=== PATIENT | female | born 1985 | race Two or more races ===

== ENCOUNTER 2017-01-04 12:35 | Inpatient (IN) | payer OTHER ==
[2017-01-04] MEDS ORDERED: ELECTROLYTE-148 SOLN 500 ML IV ONE ×2 (13:00→14:00)
[2017-01-04 13:44] LABS: MCH 33.1 pg (25.7-33.7); MCHC 34.2 g/dl (32.0-36.0); MEAN CELL VOLUME 96.7 fl (80-96); MEAN PLT VOLUME 9.8 fl (7.5-11.1); RDW 13.5 % (11.6-15.6); URINE APPEARANCE SLCLOUDY; URINE BILIRUBIN NEGATIVE (NEGATIVE); URINE COLOR AMBER; URINE GLUCOSE (UA) 1+ (NEGATIVE); URINE KETONE NEGATIVE (NEGATIVE); URINE LEUK ESTERASE NEGATIVE (NEGATIVE); URINE NITRITE NEGATIVE (NEGATIVE); URINE UROBILINOGEN NEGATIVE E.U./dl (0.2-1.0)
[2017-01-04 13:47] LABS: URINE BLOOD 1+ (NEGATIVE); URINE PROTEIN 3+ (NEGATIVE)
[2017-01-04 13:56] LABS: URINE BACTERIA RARE /hpf (NONE SEEN); URINE HYALINE CAST 11 /lpf; URINE MUCUS FEW; URINE RBC 13 /hpf (0-3); URINE WBC 10 /hpf (3-5)
[2017-01-04 14:04] LABS: ALBUMIN 1.7 g/dl (3.4-5.0); ANION GAP 10 (8-16); BILIRUBIN,TOTAL 0.9 mg/dL (0.2-1.0); CALCIUM 7.3 mg/dL (8.5-10.1); CO2 24 mmol/L (21-32); GLUCOSE,RANDOM 97 mg/dL (74-106); TOT PROT 4.7 g/dl (6.4-8.2)
[2017-01-04 14:05] LABS: ALK PHOS 163 U/L (45-117)
[2017-01-04 14:07] LABS: SGOT/AST 521 U/L (15-37); SGPT/ALT 437 U/L (12-78)
[2017-01-04 14:12] LABS: AMYLASE 43 U/L (25-115)
--- NOTE | 2017-01-04 14:27 | HP ---
Admitting History and Physical - Admission Chief Complaint: abdominal pains History of Present Illness: 31 y/o with a prior cs and abdominoplasty comes at 36.6 weeks with complaints of RUQ pain. States it started today. Had labs done today which show elevated lfts and 3 plus protein. BP diastolic at 100. No headaches or blurry vision. EFW is in the 5 pounds. A pos, rubella immune, hiv neg. 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: No: Alzheimer's, CVA, Dementia, Migraine, Multiple Sclerosis, Peripheral Neuropathy, Parkinson's, Seizure, Syncope, TIA, Vertigo, Other Cardiovascular: No: AFIB, Aneurysm, Aortic Insufficiency, Aortic Stenosis, CAD, CHF, Deep Vein Thrombosis, HTN, Hyperlipdemia, CT, Mitral Insufficiency, Mitral Stenosis, Murmur, Pulmonary Hypertension, Other Pulmonary: No: Asthma, Bronchitis, Cancer, COPD, O2 Dependent, Pneumonia, Previously Intubated, Pulmonary Embolus, Pulmonary Fibrosis, Sleep Apnea, Other Gastrointestinal: No: Ascites, Cancer, Constipation, Crohn's Disease, Diverticulitis, Diverticulosis, Esophageal Varices, Gastritis, GERD, GI Bleed, Hemorrhoids, Hiatal Hernia, Inflamatory Bowel Disease, Irritable Bowel Disease, Pancreatitis, Peptic Ulcer Disease, Ulcerative Colitis, Other Hepatobiliary: No: Cirrhosis, Cholelithiasis, Cholecystitis, Choledocholithiasis , Hepatitis A, Hepatitis B, Hepatitis C, Other Renal/: No: Renal Failure, Renal Inusuff, BPH, Cancer, Hematuria, Hemodialysis , Neurogenic Bladder, Renal Calculi, UTI, Other Reproductive: No: Ectopic , Endometriosis, Fibroids, PID, Polycystic Ovary Syndrome, Postmenopausal, Other Heme/Onc: No: Anemia, B12 Deficiency, Bleeding Disorder, Cancer, Current Chemotherapy, Current Radiation Therapy, Hemochromatosis, Hypercoaguable State, Myeloproliferative Synd, Sickle Cell Disease, Sickle Cell Trait, Thrombocytopenia, Other Infectious Disease: No: AIDS, C-Diff, Herpes Zoster, HIV, MRSA, STD's, Tuberculosis, VREF, Other Psych: No: Addictions, Anxiety, Bipolar, Depression, Panic, Psychosis, Schizophrenia, Other Musculoskeletal: No: Bursitis, Chronic low back pain, Hemiparesis, Hemiplegia, Osteoarthritis, Paraplegia, Other Rheumatology: No: Fibromyalgia, Gout, Lupus, Rheumatoid Arthritis, Sarcoidosis, Vasculitis, Other ENT: No: Allergic Rhinitis, Sinusitis, Other Endocrine: No: [place]ell[place]'s Disease, Orange's Disease, Diabetes Insipidus, Diabetes Mellitus, Hyperparathyroidism, Hyperthyroidism, Hypothyroidism, Osteopenia, SIADH, Other Dermatology: No: Basal Cell, Cellulitis, Eczema, Melanoma, Psoriasis, Squamous Cell, Other - Past Surgical History Past Surgical History: No: None, AAA Repair, AICD, Amputation, Appendectomy, Arthrosocopy, AV Fistula/Graft, Bariatric Surgery, Breast Biopsy, Bypass, CABG, Carotid Endarterectomy, Cataract Removal, Cholecystectomy, Colectomy, Colonoscopy, Colostomy, Craniotomy, , Cystectomy, Hernia Repair, Hysterectomy, Ileal Conduit, Ileosotomy, Joint Replacement, Kidney Transplant, Laminectomy, Liver Transplant, Mastectomy, Nephrectomy, Oopherectomy, Orchiectomy, Permanent Pacemaker, Prostatectomy, Splenectomy, Stent, Thoracotomy , TURP, Tonsillectomy, Tubal Ligation, Upper Endoscopy, Valve Replacement, Vasectomy, Vein Stripping/Ligation - Advance Directives Advance Directives: No: Living Will, Health Care Proxy, DNR, Organ Donor, Tissue Donor - Smoking History Smoking history: Never smoked - Alcohol/Substance Use Hx Alcohol Use: No Home Medications - Allergies Allergies/Adverse Reactions: Allergies Allergy/AdvReac Type Severity Reaction Status Date / Time No Known Allergies Allergy Verified 07/27/16 22:19 - Home Medications Home Medications: Ambulatory Orders Plus Iron Tablet 1 tab PO DAILY 11/28/16 Review of Systems - Review of Systems Constitutional: reports: No Symptoms Eyes: reports: No Symptoms HENT: reports: No Symptoms Neck: reports: No Symptoms Cardiovascular: reports: No Symptoms Respiratory: reports: No Symptoms Gastrointestinal: reports: No Symptoms Genitourinary: reports: No Symptoms Breasts: reports: No Symptoms Reported Musculoskeletal: reports: No Symptoms Integumentary: reports: No Symptoms Neurological: reports: No Symptoms Endocrine: reports: No Symptoms Hematology/Lymphatic: reports: No Symptoms Psychiatric: reports: No Symptoms Physical Examination Constitutional: Yes: Well Nourished Eyes: Yes: WNL HENT: Yes: WNL Neck: Yes: WNL Cardiovascular: Yes: WNL Respiratory: Yes: WNL Gastrointestinal: Yes: WNL ...Rectal Exam: Yes: WNL Renal/: Yes: WNL Breast(s): Yes: WNL Musculoskeletal: Yes: WNL Extremities: Yes: WNL Neurological: Yes: WNL ...Motor Strength: WNL Psychiatric: Yes: WNL Labs: CBC, BMP 01/04/17 13:30 01/04/17 13:30 Assessment/Plan as above admit labs will start magnesium sulfate consents
[2017-01-04 14:36] VITALS: BMI 34.7
[2017-01-04] MEDS ORDERED: ONDANSETRON 4 MG/2 ML VIAL IVPB PRN (14:52)
[2017-01-04] MEDS ORDERED: IBUPROFEN 600 MG TABLET (FP) PO PRN (14:52)
[2017-01-04] MEDS ORDERED: morphine SULFATE/Preservative Free 0.5 MG/ML (1cc Syringe) EP ONE (14:52)
[2017-01-04] MEDS ORDERED: ACETAMINOPHEN 325 MG TABLET (FP) PO PRN (14:52)
[2017-01-04 14:58] LABS: BASOPHIL 0.5 % (0-2.0); EOSINOPHIL 1.2 % (0-4.5); MCH 32.8 pg (25.7-33.7); MCHC 33.9 g/dl (32.0-36.0); MEAN CELL VOLUME 96.9 fl (80-96); MEAN PLT VOLUME 9.7 fl (7.5-11.1); NEUTROPHILS 72.6 % (42.8-82.8); RDW 13.3 % (11.6-15.6); WHITE BLOOD COUNT 14.2 K/mm3 (4.0-10.0)
[2017-01-04 15:11] LABS: INR 0.86 (0.82-1.09); PROTHROMBIN TIME (PATIENT) 9.4 SEC (9.98-11.88)
[2017-01-04 15:14] LABS: ACTIVATED PTT 23.6 SECONDS (26.9-34.4)
[2017-01-04] MEDS ORDERED: MAGNESIUM 4GM/H20 - 100 ML IVPB SCH (15:15)
[2017-01-04 15:16] LABS: PLATELET ESTIMATE MARKEDLY DECREASED (NORMAL)
--- NOTE | 2017-01-04 15:17 | PN ---
Progress Note (short form) - Note Progress Note: platlets are 28K...will start transfusion of platlets and pt will go under genral anesthesia
[2017-01-04 15:18] LABS: PLATELET COUNT 24 K/MM3 (134-434)
[2017-01-04 15:28] LABS: PLATELET COUNT 28 K/MM3 (134-434)
[2017-01-04 16:22] LABS: ARTERIAL BLD GAS O2 SATURATION 48.2 % (90-98.9); ARTERIAL BLOOD GAS BASE EXCESS -0.3 meq/l (-2-2); ARTERIAL BLOOD GAS HCO3 25.8 meq/L (22-26); ARTERIAL BLOOD GAS PO2 24.8 mmHg (80-100); ARTERIAL BLOOD GAS pH 7.34 (7.35-7.45)
[2017-01-04 16:26] LABS: ART PUNCT SITE OTHER; ON ANTICOAG? CORD BLOOD; PT'S TEMP ARTERIAL SAMPLE
[2017-01-04] MEDS ORDERED: PROMETHAZINE HCL 25 MG/1 ML VIAL IVPUSH PRN (16:28)
[2017-01-04] MEDS ORDERED: ONDANSETRON 4 MG/2 ML VIAL IVPUSH PRN (16:28)
[2017-01-04] MEDS ORDERED: LACTATED RINGERS SOLUTION 1,000 ML IV SCH (16:30)
[2017-01-04 16:33] LABS: LPM/O2% 8L; PT. ON O2? YES; TYPE OF O2 NASAL
[2017-01-04 16:38] LABS: VENOUS PH 7.34 (7.32-7.42)
[2017-01-04 16:39] LABS: VENOUS BLOOD GAS HCO3 25.8 meq/L (19-25)
[2017-01-04] MEDS: HYDROmorphone HCL CARPU-JECT 1 MG/1 ML DISP.SYRIN IVPUSH PRN ×2 (17:10→22:40)
--- NOTE | 2017-01-04 17:15 | PN ---
Progress Note (short form) - Note Progress Note: doing well, dressing dry, minimal pain
[2017-01-04] MEDS: MAGNESIUM SULFATE 20GM/500ML - 500 ML IV SCH (17:55)
[2017-01-04] MEDS ORDERED: OXYTOCIN 20 UNITS in 0.9% NS 1,000 ML IV SCH (19:45)
--- NOTE | 2017-01-04 20:14 | CONSULT ---
Consult Consult Specialty:: Pulm/CC - History of Present Illness History of Present Illness: Pt is a 31yr old woman P2(previous notes states P3)G2 with PMHx of preeclamsia and abdominal cosmetic surgery. She presents post caesarian (second) with cc of thrombocytopenia. Upon assessment pt is s/p 2 units platelets. Denies chest pain /sob/n/v/headache. Endorses epistaxis and diarrhea 2 days ago. 127/91, 97% on 2L NC, hr 90s on sinus. - History Source History Provided By: Patient, Medical Record Limitations to Obtaining History: No Limitations - Alcohol/Substance Use Hx Alcohol Use: No - Smoking History Smoking history: Never smoked Have you smoked in the past 12 months: No Home Medications - Allergies Allergies/Adverse Reactions: Allergies Allergy/AdvReac Type Severity Reaction Status Date / Time No Known Allergies Allergy Verified 07/27/16 22:19 - Home Medications Home Medications: Ambulatory Orders Plus Iron Tablet 1 tab PO DAILY 11/28/16 Review of Systems - Review of Systems HENT: reports: Epistaxis Cardiovascular: reports: Edema. denies: Chest Pain Respiratory: denies: SOB Gastrointestinal: reports: Diarrhea. denies: Constipation, Melena Genitourinary: denies: Dysuria Neurological: denies: Headache Physical Exam Vital Signs: \ Vital Signs Period Temp Pulse Resp BP Sys/Marques Pulse Ox Last 24 Hr 97.8 F-99.0 F 82-102 14-24 114-152/77-117 97-100 Intake & Output 01/01/17 01/02/17 01/03/17 01/04/17 23:59 23:59 23:59 23:59 Intake Total 2535 Output Total 400 Balance 2135 Weight 196 lb Constitutional: Yes: Well Nourished, No Distress, Calm Eyes: Yes: Other (bilateral miosis) HENT: Yes: WNL Neck: Yes: WNL Cardiovascular: Yes: S1, S2. No: Murmur Respiratory: Yes: Regular, On Nasal O2. No: Rales, Rhonchi, Wheezes Gastrointestinal: Yes: Normal Bowel Sounds, Abdomen, Obese, Tenderness, Other ( suprapubic scarring) ...Rectal Exam: Yes: Deferred Renal/: Yes: Andrews Present (yellow output) Musculoskeletal: Yes: WNL Extremities: Yes: WNL Edema: Yes Edema: LLE: 1+, RLE: 1+ Peripheral Pulses WNL: Yes (+2 bilateral pedal pulses) Wound/Incision: Yes: Dressing Dry and Intact. No: Bleeding Neurological: Yes: WNL Psychiatric: Yes: WNL Labs: Abnormal Lab Results 01/04/17 01/04/17 01/04/17 13:30 13:30 13:30 WBC RBC Hgb Hct MCV Plt Count Neutrophils % Lymphocytes % Monocytes % Retic Count 3.86 H PTT (Actin FS) ABG pH ABG pCO2 at Pt Temp ABG pO2 at Pt Temp ABG O2 Sat (Measured) ABG O2 Content POC VBG pO2 Mixed VBG HCO3 Calcium 7.3 L AST 521 H ALT 437 H Alkaline Phosphatase 163 H Total Protein 4.7 L Albumin 1.7 L Urine Protein 3+ H Urine Glucose (UA) 1+ H Urine Blood 1+ H 01/04/17 01/04/17 01/04/17 13:30 14:13 15:00 WBC 14.0 H 14.2 H RBC Hgb Hct MCV 96.7 H 96.9 H Plt Count 24 L* D 28 L* Neutrophils % Lymphocytes % Monocytes % 10.6 H Retic Count PTT (Actin FS) 23.6 L ABG pH ABG pCO2 at Pt Temp ABG pO2 at Pt Temp ABG O2 Sat (Measured) ABG O2 Content POC VBG pO2 Mixed VBG HCO3 Calcium AST ALT Alkaline Phosphatase Total Protein Albumin Urine Protein Urine Glucose (UA) Urine Blood 01/04/17 01/04/17 01/04/17 16:11 16:12 20:35 WBC 19.7 H D RBC 2.92 L D Hgb 9.6 L D Hct 28.1 L D MCV 96.2 H Plt Count 61 L D Neutrophils % 89.6 H D Lymphocytes % 5.7 L D Monocytes % Retic Count PTT (Actin FS) ABG pH 7.34 L ABG pCO2 at Pt Temp 49.2 H ABG pO2 at Pt Temp 24.8 L* ABG O2 Sat (Measured) 48.2 L* ABG O2 Content 11.1 L POC VBG pO2 23.2 L Mixed VBG HCO3 25.8 H Calcium AST ALT Alkaline Phosphatase Total Protein Albumin Urine Protein Urine Glucose (UA) Urine Blood Assessment/Plan Pt is a 31yr old woman P2(previous notes states P3)G2 with PMHx of preeclamsia and abdominal cosmetic surgery. Now in the ICU for post ceasarian recovery in setting of transaminities and thrombocytopenia. Pulm: -O2 support prn -Incentive spirometer ID: -f/u cultures -Monitor off antibiotics for now OGYB: -OB team following -IVF/Oxytocin/Mag/Surgical care per obgyn Renal -I/Os -Monitor electrolytes Cardiovascular -Monitor h/h, tranfuse prn -BP control GI: -Monitor LFTs -Trend coags/platelets, transfuse prn Neuro -Pain management Prophylactic -DVT
[2017-01-04 20:49] LABS: BASOPHIL 0.2 % (0-2.0); EOSINOPHIL 0.1 % (0-4.5); MCHC 34.2 g/dl (32.0-36.0); MEAN CELL VOLUME 96.2 fl (80-96); MEAN PLT VOLUME 7.7 fl (7.5-11.1); NEUTROPHILS 89.6 % (42.8-82.8); PLATELET COUNT 61 K/MM3 (134-434); RDW 13.8 % (11.6-15.6); WHITE BLOOD COUNT 19.7 K/mm3 (4.0-10.0)
[2017-01-04 21:02] LABS: INR 0.97 (0.82-1.09); PROTHROMBIN TIME (PATIENT) 10.7 SEC (9.98-11.88)
[2017-01-04 21:15] LABS: ALBUMIN 1.9 g/dl (3.4-5.0); ALK PHOS 156 U/L (45-117); ANION GAP 8 (8-16); BILIRUBIN,TOTAL 0.9 mg/dL (0.2-1.0); CALCIUM 7.1 mg/dL (8.5-10.1); CO2 24 mmol/L (21-32); CREATININE 0.9 mg/dL (0.55-1.02); GLUCOSE,RANDOM 114 mg/dL (74-106); MAGNESIUM 5.3 mg/dL (1.8-2.4); PHOSPHOROUS 3.1 mg/dL (2.5-4.9); SGPT/ALT 388 U/L (12-78); TOT PROT 4.8 g/dl (6.4-8.2)
[2017-01-04 21:16] LABS: SGOT/AST 487 U/L (15-37)
--- NOTE | 2017-01-05 00:06 | PN ---
Post Progress Note Post Day: 1 Type of Delivery: Repeat C/S Vital Signs: Vital Signs Temperature 98 F 01/04/17 22:00 Pulse Rate 102 H 01/04/17 23:00 Respiratory Rate 15 01/04/17 23:00 Blood Pressure 122/94 01/04/17 23:00 O2 Sat by Pulse Oximetry (%) 98 01/04/17 20:51 Breast Exam: Yes: Soft Uterus: Yes: Fundus Firm Incision: Yes: Dressing dry and intact Abdomen/GI: Yes: Abdomen soft Lochia: Yes: Rubra Lochia, amount: Small Extremities: Yes: Calves non-tender Perineum: Yes: Intact Activity: Ambulating - Labs Labs: CBC WBC 19.7 K/mm3 (4.0-10.0) H D 01/04/17 20:35 RBC 2.92 M/mm3 (3.60-5.2) L D 01/04/17 20:35 Hgb 9.6 GM/dL (10.7-15.3) L D 01/04/17 20:35 Hct 28.1 % (32.4-45.2) L D 01/04/17 20:35 MCV 96.2 fl (80-96) H 01/04/17 20:35 MCHC 34.2 g/dl (32.0-36.0) 01/04/17 20:35 RDW 13.8 % (11.6-15.6) 01/04/17 20:35 Plt Count 61 K/MM3 (134-434) L D 01/04/17 20:35 MPV 7.7 fl (7.5-11.1) D 01/04/17 20:35 Neutrophils % 89.6 % (42.8-82.8) H D 01/04/17 20:35 Lymphocytes % 5.7 % (8-40) L D 01/04/17 20:35 Monocytes % 4.4 % (3.8-10.2) 01/04/17 20:35 Eosinophils % 0.1 % (0-4.5) D 01/04/17 20:35 Basophils % 0.2 % (0-2.0) 01/04/17 20:35 Platelet Estimate Markedly decreased (NORMAL) 01/04/17 13:30 Platelet Comment No clumping noted 01/04/17 13:30 Retic Count 3.86 % (0.5-1.5) H 01/04/17 13:30 Assessment/Plan as above continue care check mag pain meds
[2017-01-05] MEDS ORDERED: ARTIFICIAL TEARS (POLYVINYL ALCOHOL 1.4%) OPTH DROPS OU PRN ×2 (06:00→20:07)
[2017-01-05 06:12] LABS: MCH 33.1 pg (25.7-33.7); MCHC 34.5 g/dl (32.0-36.0); MEAN CELL VOLUME 95.7 fl (80-96); MEAN PLT VOLUME 9.6 fl (7.5-11.1); PLATELET COUNT 74 K/MM3 (134-434); RDW 13.5 % (11.6-15.6); WHITE BLOOD COUNT 22.5 K/mm3 (4.0-10.0)
[2017-01-05 06:22] LABS: INR 0.92 (0.82-1.09); PROTHROMBIN TIME (PATIENT) 10.1 SEC (9.98-11.88)
[2017-01-05 06:25] LABS: ACTIVATED PTT 29.8 SECONDS (26.9-34.4)
[2017-01-05] MEDS: HYDROmorphone HCL CARPU-JECT 1 MG/1 ML DISP.SYRIN IVPUSH PRN ×2 (06:25→12:16)
[2017-01-05 06:35] LABS: CREATININE 0.8 mg/dL (0.55-1.02); PHOSPHOROUS 4.6 mg/dL (2.5-4.9)
[2017-01-05 06:36] LABS: TROPONIN I < 0.02 ng/ml (0.00-0.05)
[2017-01-05 08:06] LABS: CALCIUM 6.7 mg/dL (8.5-10.1)
[2017-01-05] MEDS ORDERED: PIPERACILLIN/TAZOB 3.375 GM/50 ML PRE-DOCKED IVPB SCH ×2 (08:45→22:00)
[2017-01-05] MEDS ORDERED: PIPERACILLIN/TAZOB 3.375 GM/50 ML PRE-DOCKED IVPB ONE (09:15)
[2017-01-05] MEDS ORDERED: LABETALOL HCL 5 MG/1 ML (100MG/20 ML VIAL) IVPUSH ONE (10:18)
[2017-01-05 10:45] LABS: ALBUMIN 1.9 g/dl (3.4-5.0); ANION GAP 11 (8-16); CO2 23 mmol/L (21-32); CREATININE 0.8 mg/dL (0.55-1.02); GLUCOSE,RANDOM 105 mg/dL (74-106); SGOT/AST 297 U/L (15-37); SGPT/ALT 342 U/L (12-78)
[2017-01-05 10:47] LABS: ALK PHOS 175 U/L (45-117); BILIRUBIN,TOTAL 0.7 mg/dL (0.2-1.0); TOT PROT 5.2 g/dl (6.4-8.2)
[2017-01-05 11:04] LABS: CALCIUM 6.9 mg/dL (8.5-10.1)
[2017-01-05 11:05] LABS: MAGNESIUM 7.6 mg/dL (1.8-2.4)
--- NOTE | 2017-01-05 11:47 | PN ---
Physical Exam: SUBJECTIVE: Patient seen and examined at bedside in ICU. Afebrile overnight with good urine output. Surgical site clean & dry and patient reports pain improving. BP well controlled at present. No signs of active bleeding. OBJECTIVE: Vital Signs Period Temp Pulse Resp BP Sys/Marques Pulse Ox Last 24 Hr 97.6 F-99.0 F 82-115 12-24 114-152/77-117 97-100 GENERAL: The patient is awake, alert, and fully oriented, in no acute distress. HEENT: Atraumatic, EOMI, PERRLA, No lymphadenopathy, moist membranes LUNGS: Breath sounds equal, clear to auscultation bilaterally, no wheezes, no crackles, no accessory muscle use. HEART: Tachcardic S1, S2 without murmur, rub or gallop. ABDOMEN: Soft, nondistended, normoactive bowel sounds. Mild tender to palpation around surgical site. Incision site clean & dry, nonerythematous w/o discharge EXTREMITIES: 2+ pulses, warm, well-perfused, +1 pitting edema bilateral LE NEUROLOGICAL: Cranial nerves II through XII grossly intact. Normal speech, gait not observed. PSYCH: Normal mood, normal affect. SKIN: Warm, dry, normal turgor, no rashes or lesions noted Laboratory Results - 01/05/17 01/05/17 01/05/17 03:10 05:00 05:00 WBC 22.5 H RBC 3.16 L Hgb 10.4 L Hct 30.2 L MCV 95.7 MCHC 34.5 RDW 13.5 Plt Count 74 L D MPV 9.6 D Neutrophils % Lymphocytes % Monocytes % Eosinophils % Basophils % Platelet Estimate Platelet Comment Retic Count INR PTT (Actin FS) Fibrinogen Anticoagulation Therapy Puncture Site Patient Temperature ABG pH ABG pCO2 at Pt Temp ABG pO2 at Pt Temp ABG HCO3 ABG O2 Sat (Measured) ABG O2 Content ABG Base Excess Dylon Test VBG pH POC VBG pCO2 POC VBG pO2 Mixed VBG HCO3 O2 Delivery Device Oxygen Flow Rate Sodium 135 L Potassium 4.9 Chloride 100 Carbon Dioxide 26 Anion Gap 9 BUN 12 Creatinine 0.8 Creat Clearance w eGFR Random Glucose 100 Lactic Acid Uric Acid Calcium 6.7 L* Phosphorus 4.6 D Magnesium 6.8 H D Total Bilirubin GGT AST ALT Alkaline Phosphatase Creatine Kinase CK-MB (CK-2) Troponin I Total Protein Albumin Total Amylase Lipase Urine Color Urine Appearance Urine pH Ur Specific [place] Urine Protein Urine Glucose (UA) Urine Ketones Urine Blood Urine Nitrite Urine Bilirubin Urine Urobilinogen Ur Leukocyte Esterase Urine RBC Urine WBC Ur Epithelial Cells Urine Bacteria Hyaline Casts Urine Mucus RPR Titer Blood Type Antibody Screen 01/05/17 01/05/17 01/05/17 05:00 05:00 05:00 WBC RBC Hgb Hct MCV MCHC RDW Plt Count MPV Neutrophils % Lymphocytes % Monocytes % Eosinophils % Basophils % Platelet Estimate Platelet Comment Retic Count INR 0.92 PTT (Actin FS) 29.8 Fibrinogen Anticoagulation Therapy Puncture Site Patient Temperature ABG pH ABG pCO2 at Pt Temp ABG pO2 at Pt Temp ABG HCO3 ABG O2 Sat (Measured) ABG O2 Content ABG Base Excess Dylon Test VBG pH POC VBG pCO2 POC VBG pO2 Mixed VBG HCO3 O2 Delivery Device Oxygen Flow Rate Sodium Potassium Chloride Carbon Dioxide Anion Gap BUN Creatinine Creat Clearance w eGFR Random Glucose Lactic Acid 1.650 Uric Acid Calcium Phosphorus Magnesium Total Bilirubin GGT AST ALT Alkaline Phosphatase Creatine Kinase 521 H CK-MB (CK-2) 5.573 H Troponin I < 0.02 Total Protein Albumin Total Amylase Lipase Urine Color Urine Appearance Urine pH Ur Specific [place] Urine Protein Urine Glucose (UA) Urine Ketones Urine Blood Urine Nitrite Urine Bilirubin Urine Urobilinogen Ur Leukocyte Esterase Urine RBC Urine WBC Ur Epithelial Cells Urine Bacteria Hyaline Casts Urine Mucus RPR Titer Blood Type Antibody Screen 01/05/17 01/05/17 09:50 09:50 WBC RBC Hgb Hct MCV MCHC RDW Plt Count MPV Neutrophils % Lymphocytes % Monocytes % Eosinophils % Basophils % Platelet Estimate Platelet Comment Retic Count INR PTT (Actin FS) Fibrinogen Anticoagulation Therapy Puncture Site Patient Temperature ABG pH ABG pCO2 at Pt Temp ABG pO2 at Pt Temp ABG HCO3 ABG O2 Sat (Measured) ABG O2 Content ABG Base Excess Dylon Test VBG pH POC VBG pCO2 POC VBG pO2 Mixed VBG HCO3 O2 Delivery Device Oxygen Flow Rate Sodium 135 L Potassium 4.6 Chloride 101 Carbon Dioxide 23 Anion Gap 11 BUN 12 Creatinine 0.8 Creat Clearance w eGFR > 60 Random Glucose 105 Lactic Acid Uric Acid Calcium 6.9 L* Phosphorus Magnesium Cancelled 7.6 H* Total Bilirubin 0.7 D GGT AST 297 H D ALT 342 H Alkaline Phosphatase 175 H Creatine Kinase CK-MB (CK-2) Troponin I Total Protein 5.2 L Albumin 1.9 L Total Amylase Lipase Urine Color Urine Appearance Urine pH Ur Specific [place] Urine Protein Urine Glucose (UA) Urine Ketones Urine Blood Urine Nitrite Urine Bilirubin Urine Urobilinogen Ur Leukocyte Esterase Urine RBC Urine WBC Ur Epithelial Cells Urine Bacteria Hyaline Casts Urine Mucus RPR Titer Blood Type Antibody Screen Active Medications Generic Name Dose Route Start Last Admin Trade Name Freq PRN Reason Stop Dose Admin Artificial Tears 1 drop 01/05/17 06:00 01/05/17 06:22 Artificial Tears OU 1 drop TID PRN Administration DRY EYES Diphenhydramine HCl 25 mg 01/04/17 14:52 01/05/17 06:22 Benadryl Injection - IVPUSH 25 mg Q4H PRN Administration Pruritis Fentanyl 50 mcg 01/04/17 16:28 Sublimaze Injection - IVPUSH 01/07/17 16:29 [id number] PRN PAIN Hydromorphone HCl 1 mg 01/04/17 16:43 01/05/17 12:16 Dilaudid Injection - IVPUSH 1 mg Q6H PRN Administration PAIN Magnesium Sulfate 500 mls @ 50 mls/hr 01/04/17 15:15 01/04/17 17:55 Magnesium Sulfate 20gm/500ml - IV 50 mls/hr ASDIR GUILLERMO Administration Piperacillin Sod/Tazobactam Sod 3.375 gm 01/05/17 08:45 Zosyn 3.375gm Ivpb (Pre-Docked) IVPB 01/06/17 08:44 BID [facility] Protocol ASSESSMENT/PLAN: 31 year old with PMH of preeclamsia and abdominal cosmetic surgery presents to ICU status post delivery yesterday. Patient has thrombocytopenia, elevated LFT's & hypertension. S/p 2units platelets for HELLP- variant preeclampsia. #HELLP Syndrome, s/p -Magnesium being given, last level recorded was 7.6 at 9am -keep Mg 4.8-8.4 -Lopressor given earlier today with good BP control -s/p 2 units platelets -Zosyn (empiric antibiotics) -Dilaudid pain management -incision site clean & dry -FINANCIAL SERVICES DIRECTOR following Prophylaxis -SCD -Tolerating sodium-controlled diet Visit type - Emergency Visit Emergency Visit: Yes ED Registration Date: 01/04/17 Care time: The patient presented to the Emergency Department on the above date and was hospitalized for further evaluation of their emergent condition. - New Patient This patient is new to me today: Yes Date on this admission: 01/05/17 - Critical Care Critical Care patient: Yes Total Critical Care Time (in minutes): 50 Critical Care Statement: The care of this patient involved high complexity decision making to prevent further life threatening deterioration of the patient 's condition and/or to evalute & treat vital organ system(s) failure or risk of failure.
--- NOTE | 2017-01-05 12:54 | PN ---
Progress Note (short form) - Note Progress Note: POD #1 - s/p under general anesthesia with history of pre-eclampsia. Pt. doing well, sitting up comfortably in chair. BP improved on magnesium and labetalol. Platelets increased to 74. No complaints. Good pain control. No apparent anesthetic complications noted. Continue current care.
--- NOTE | 2017-01-05 14:24 | PN ---
Teaching Attending Note Name of Resident: Luciano Walters ATTENDING PHYSICIAN STATEMENT I saw and evaluated the patient. I reviewed the resident's note and discussed the case with the resident. I agree with the resident's findings and plan as documented. SUBJECTIVE: Pt seen and examined in the ICU. c/o generalized weakness but no headache, nausea. On magnesium gtt. Diastolic pressures high. OBJECTIVE: Last Vital Signs Temp Pulse Resp BP Pulse Ox 98 F 95 H 18 121/86 98 01/05/17 10:50 01/05/17 11:23 01/05/17 10:50 01/05/17 10:50 01/05/17 11:23 Intake & Output 01/02/17 01/03/17 01/04/17 01/05/17 23:59 23:59 23:59 23:59 Intake Total 3010 2275 Output Total 400 2200 Balance 2610 75 Weight 196 lb 195 lb 1 oz Gen: weak appearing Heart: RRR Lung: decreased breath sounds at the bases Abd: soft, dressings dry, appropriately tender Ext: + edema CBC, BMP 01/05/17 05:00 01/05/17 09:50 Active Medications Artificial Tears (Artificial Tears) 1 drop OU TID PRN PRN Reason: DRY EYES Last Admin: 01/05/17 06:22 Dose: 1 drop Diphenhydramine HCl (Benadryl Injection -) 25 mg IVPUSH Q4H PRN PRN Reason: Pruritis Last Admin: 01/05/17 06:22 Dose: 25 mg Fentanyl (Sublimaze Injection -) 50 mcg IVPUSH [id number] PRN PRN Reason: PAIN Stop: 01/07/17 16:29 Hydromorphone HCl (Dilaudid Injection -) 1 mg IVPUSH Q6H PRN PRN Reason: PAIN Last Admin: 01/05/17 12:16 Dose: 1 mg Magnesium Sulfate (Magnesium Sulfate 20gm/500ml -) 500 mls @ 50 mls/hr IV ASDIR GUILLERMO Last Admin: 01/04/17 17:55 Dose: 50 mls/hr Piperacillin Sod/Tazobactam Sod (Zosyn 3.375gm Ivpb (Pre-Docked)) 3.375 gm IVPB BID GUILLERMO PRN Reason: Protocol Stop: 01/06/17 08:44 ASSESSMENT AND PLAN: HELLP Syndrome r/o Pre-eclampsia s/p - continue magnesium gtt to keep Mg 4.8-8.4 - BP control - pain control - received empiric antibiotics - f/u cultures - can monitor off antibiotics - monitor platelets, LFTs - PO as tolerated - DVT prophylaxis - continue ICU monitoring
[2017-01-05] MEDS: MAGNESIUM SULFATE 20GM/500ML - 500 ML IV SCH (14:25)
[2017-01-05] MEDS ORDERED: HYDROmorphone HCL CARPU-JECT 1 MG/1 ML DISP.SYRIN IVPUSH PRN (20:07)
[2017-01-05] MEDS: ACETAMINOPHEN 325 MG TABLET (FP) PO PRN ×2 (20:56→23:58)
[2017-01-05] MEDS: oxyCODONE HCL 5 MG TABLET PO PRN (23:57)
[2017-01-05] MEDS: SENNOSIDES/DOCUSATE COMBO (SENNA PLUS) TABLET (UD) PO PRN (23:58)
[2017-01-06 09:30] LABS: BASOPHIL 1.3 % (0-2.0); MCH 32.8 pg (25.7-33.7); MCHC 34.2 g/dl (32.0-36.0); MEAN CELL VOLUME 95.9 fl (80-96); MEAN PLT VOLUME 9.2 fl (7.5-11.1); NEUTROPHILS 68.7 % (42.8-82.8); PLATELET COUNT 111 K/MM3 (134-434); WHITE BLOOD COUNT 18.1 K/mm3 (4.0-10.0)
[2017-01-06 10:06] LABS: ALBUMIN 1.6 g/dl (3.4-5.0); ALK PHOS 161 U/L (45-117); ANION GAP 7 (8-16); BILIRUBIN,TOTAL 0.4 mg/dL (0.2-1.0); CO2 28 mmol/L (21-32); CREATININE 0.8 mg/dL (0.55-1.02); GLUCOSE,RANDOM 100 mg/dL (74-106); MAGNESIUM 3.5 mg/dL (1.8-2.4); PHOSPHOROUS 3.3 mg/dL (2.5-4.9); SGOT/AST 114 U/L (15-37); SGPT/ALT 205 U/L (12-78); TOT PROT 4.6 g/dl (6.4-8.2)
[2017-01-06 10:18] LABS: CALCIUM 6.2 mg/dL (8.5-10.1)
[2017-01-06] MEDS: oxyCODONE HCL 5 MG TABLET PO PRN ×2 (11:30→20:23)
[2017-01-06] MEDS: ACETAMINOPHEN 325 MG TABLET (FP) PO PRN ×2 (11:31→20:23)
--- NOTE | 2017-01-06 13:29 | PN ---
Progress Note (short form) - Note Progress Note: pod 1. s/p c/s pih. anemia. thrombocytopenia c/o being tiered, no blurred vision, no head ache CBC, BMP 01/06/17 09:20 01/06/17 09:20 Last Vital Signs Temp Pulse Resp BP Pulse Ox 98.6 F 94 H 20 117/75 98 01/06/17 08:15 01/06/17 08:15 01/06/17 08:15 01/06/17 08:15 01/05/17 11:23 abdomen soft , no distension,no RUQ tenderness incision dry, clean no calf tenderness no excess vaginal bleeding impression, resolving PIH, bp stable, platletes on rise, hypocalcemia secondary to low albumin level. on regular diet now plan monitor bp, ambulate;
[2017-01-06] MEDS ORDERED: BISACODYL 10 MG SUPP.RECT RC PRN (15:44)
[2017-01-06] MEDS: SENNOSIDES/DOCUSATE COMBO (SENNA PLUS) TABLET (UD) PO PRN (20:24)
[2017-01-07 00:06] LABS: HEP B SURFACE AB Non Reactive (.)
[2017-01-07 00:06] LABS: HEP B SURFACE AB Non Reactive (.)
[2017-01-07] MEDS: oxyCODONE HCL 5 MG TABLET PO PRN ×3 (01:12→23:43)
[2017-01-07] MEDS: ACETAMINOPHEN 325 MG TABLET (FP) PO PRN ×3 (01:12→23:44)
[2017-01-07 07:31] LABS: BASOPHIL 0.7 % (0-2.0); EOSINOPHIL 3.2 % (0-4.5); MCH 33.3 pg (25.7-33.7); MCHC 33.8 g/dl (32.0-36.0); MEAN CELL VOLUME 98.5 fl (80-96); MEAN PLT VOLUME 9.3 fl (7.5-11.1); NEUTROPHILS 62.4 % (42.8-82.8); PLATELET COUNT 103 K/MM3 (134-434); RDW 14.2 % (11.6-15.6); WHITE BLOOD COUNT 15.7 K/mm3 (4.0-10.0)
--- NOTE | 2017-01-07 08:06 | PN ---
Post Progress Note - Subjective Subjective: pain scale 5/10 at incision site no c/o headache voiding without difficulty no c/o dizziness Post Day: 3 Type of Delivery: Repeat C/S Vital Signs: Vital Signs Temperature 98.8 F 01/06/17 22:00 Pulse Rate 79 01/07/17 05:56 Respiratory Rate 20 01/07/17 05:56 Blood Pressure 128/79 01/07/17 05:56 O2 Sat by Pulse Oximetry (%) 98 01/05/17 11:23 Selected Entries 01/06/17 01/06/17 01/06/17 13:30 18:00 22:00 Blood Pressure 119/81 144/86 130/86 01/07/17 02:00 Blood Pressure 133/83 Breast Exam: Yes: Soft, Other (not BF ). No: Engorged Uterus: Yes: Fundus Firm, Fundus below umbilicus, Non-tender Incision: Yes: [place] intact. No: Redness, Oozing Abdomen/GI: Yes: Abdomen soft (bs active ), Passing flatus, Tolerating PO (diet) , Other (bm not done ). No: Abdominal Distention, Tender Lochia: Yes: Rubra Lochia, amount: Moderate Extremities: Yes: Calves non-tender, Edema (2+/2+ . reflexes 1+/1+) Perineum: Yes: Intact Activity: Ambulating - Labs Labs: CBC WBC 18.1 K/mm3 (4.0-10.0) H 01/06/17 09:20 RBC 2.70 M/mm3 (3.60-5.2) L 01/06/17 09:20 Hgb 8.9 GM/dL (10.7-15.3) L D 01/06/17 09:20 Hct 25.9 % (32.4-45.2) L 01/06/17 09:20 MCV 95.9 fl (80-96) 01/06/17 09:20 MCHC 34.2 g/dl (32.0-36.0) 01/06/17 09:20 RDW 14.0 % (11.6-15.6) 01/06/17 09:20 Plt Count 111 K/MM3 (134-434) L D 01/06/17 09:20 MPV 9.2 fl (7.5-11.1) 01/06/17 09:20 Neutrophils % 68.7 % (42.8-82.8) D 01/06/17 09:20 Lymphocytes % 19.0 % (8-40) D 01/06/17 09:20 Monocytes % 8.0 % (3.8-10.2) D 01/06/17 09:20 Eosinophils % 3.0 % (0-4.5) D 01/06/17 09:20 Basophils % 1.3 % (0-2.0) D 01/06/17 09:20 Platelet Estimate Markedly decreased (NORMAL) 01/04/17 13:30 Platelet Comment No clumping noted 01/04/17 13:30 Retic Count 3.86 % (0.5-1.5) H 01/04/17 13:30 Haptoglobin < 10 mg/dL (34-200) L 01/04/17 13:30 Other Findings, Remarks: RS cta . i/o adequate Assessment/Plan s/p HEELP syndrome c/section, Anemia stable Mild Htn not on any meds . Plan ct po care . dulcolax suppository
[2017-01-07 08:50] LABS: ALBUMIN 1.8 g/dl (3.4-5.0); ALK PHOS 188 U/L (45-117); ANION GAP 10 (8-16); BILIRUBIN,TOTAL 0.3 mg/dL (0.2-1.0); CALCIUM 7.2 mg/dL (8.5-10.1); CO2 26 mmol/L (21-32); CREATININE 0.7 mg/dL (0.55-1.02); GLUCOSE,RANDOM 64 mg/dL (74-106); SGOT/AST 110 U/L (15-37); SGPT/ALT 175 U/L (12-78); TOT PROT 4.7 g/dl (6.4-8.2)
--- NOTE | 2017-01-07 13:44 | PATH ---
Surgical Pathology Report Patient Name: ANTHONY SANTOYO Med. Rec. #: [id number] /Age/Gender: 1985 (Age: 31) / F Account: [id number] Location: [facility] OBS/RV TECHNICIAN Taken: 01/04/2017 Received: 01/05/2017 Reported: 01/07/2017 Physicians: Deuce Puentes M.D. Specimen(s) Received PLACENTA Clinical History , miscarriage x1, 2003; 36.6 weeks, severe preeclampsia Repeat c/section Final Diagnosis PLACENTA, DELIVERY: FOCALLY DISRUPTED, SMALL (<400 GM), THIRD TRIMESTER PLACENTA WITH FOCAL MILD INCREASE IN PERIVILLOUS, AND PRECHORIONIC FIBRIN DEPOSITION, THREE VESSEL UMBILICAL CORD, AND PLACENTAL MEMBRANES WITH FOCAL AMNION HYPERPLASIA. Electronically Signed Jarret Walls M.D. Gross Description The specimen is received fresh, labeled "placenta" and is a 398 gram, 20.0 x 13.0 x 2.3 cm placenta with attached membranes and umbilical cord. The attached membranes are martinez, translucent with focal opacities and insert marginally. The umbilical cord measures 26 cm in length and averages 1.1 cm in diameter. The cord inserts eccentrically, 2 cm to the nearest margin. No true knots or strictures are identified. Cut surface of the umbilical cord reveals 3 vessels. The surface is ang-blue with fibrin deposition and appropriate caliber vessels. The maternal surface is red-brown with focal defects. Sectioning reveals red-brown, spongy parenchyma. No focal lesions are identified. [employer] Ins[employer] Supervisor sections are submitted in three cassettes as follows: 1- membrane rolls and umbilical cord; 2-3- full thickness sections of placenta. 01/06/201701/06/2017
[2017-01-07] MEDS: SENNOSIDES/DOCUSATE COMBO (SENNA PLUS) TABLET (UD) PO PRN (21:43)
[2017-01-07] MEDS ORDERED: LIDOCAINE HCL/PF 2% SDV 5ML VIAL ONE (23:34)
--- NOTE | 2017-01-08 08:25 | PN ---
Post Progress Note - Subjective Subjective: doing well, no headaches or bluury visiin Post Day: 4 Type of Delivery: Repeat C/S Vital Signs: Vital Signs Temperature 97.7 F 01/07/17 22:00 Pulse Rate 88 01/08/17 06:00 Respiratory Rate 18 01/08/17 06:00 Blood Pressure 116/61 01/08/17 06:00 O2 Sat by Pulse Oximetry (%) 98 01/05/17 11:23 Breast Exam: Yes: Soft Uterus: Yes: Fundus Firm Incision: Yes: Thoreau intact Abdomen/GI: Yes: Abdomen soft Lochia: Yes: Rubra Lochia, amount: Small Extremities: Yes: Calves non-tender Perineum: Yes: Intact Activity: Ambulating - Labs Labs: CBC WBC 15.7 K/mm3 (4.0-10.0) H 01/07/17 05:45 RBC 2.75 M/mm3 (3.60-5.2) L 01/07/17 05:45 Hgb 9.2 GM/dL (10.7-15.3) L 01/07/17 05:45 Hct 27.1 % (32.4-45.2) L 01/07/17 05:45 MCV 98.5 fl (80-96) H 01/07/17 05:45 MCHC 33.8 g/dl (32.0-36.0) 01/07/17 05:45 RDW 14.2 % (11.6-15.6) 01/07/17 05:45 Plt Count 103 K/MM3 (134-434) L 01/07/17 05:45 MPV 9.3 fl (7.5-11.1) 01/07/17 05:45 Neutrophils % 62.4 % (42.8-82.8) 01/07/17 05:45 Lymphocytes % 27.1 % (8-40) D 01/07/17 05:45 Monocytes % 6.6 % (3.8-10.2) 01/07/17 05:45 Eosinophils % 3.2 % (0-4.5) 01/07/17 05:45 Basophils % 0.7 % (0-2.0) 01/07/17 05:45 Platelet Estimate Markedly decreased (NORMAL) 01/04/17 13:30 Platelet Comment No clumping noted 01/04/17 13:30 Retic Count 3.86 % (0.5-1.5) H 01/04/17 13:30 Haptoglobin < 10 mg/dL (34-200) L 01/04/17 13:30 Assessment/Plan oob reg diet anticipate dc home today
[2017-01-08 10:26] VITALS: TEMP 98.4
[2017-01-08 10:28] VITALS: BP 126/89; PULSE 81
[2017-01-08] MEDS: oxyCODONE HCL 5 MG TABLET PO PRN (11:59)
[2017-01-08] MEDS: ACETAMINOPHEN 325 MG TABLET (FP) PO PRN (12:00)
--- NOTE | 2017-01-09 14:26 | OP ---
DATE OF DICTATION: 01/08/2017 HISTORY OF PRESENT ILLNESS: This 31-year-old female presents at 36 weeks with severe preeclampsia and prior section. OPERATING SURGEON: Migdalia Puentes MD SOFTWARE DEVELOPMENT PROJECT MANAGER: NEDRA Branham PROCEDURE: Repeat section. DISPOSITION: To recovery room in stable condition. ESTIMATED BLOOD LOSS: 500 mL. COMPLICATIONS: None. FINDINGS: Vertex presentation. Apgars of 8 and 9. Normal tubes, ovaries, and placenta. DESCRIPTION OF PROCEDURE: Patient was consented prior to entering the operating suite. Patient was put on the table in dorsal supine position, prepped and draped in the usual sterile fashion. At this time, patient did have previous abdominoplasty in which the suture line was then used as to gain entry. This was then carried down to the level of the fascia. The fascia was then transected to the left and right of midline. The fascia had been transected. The underlying rectus abdominis muscle was then teased away from the overlying muscle. At this time, the muscle was then split digitally in the midline. It was then carried down caudally as well as cranially. The gravid uterus was then identified. Transverse incision was made. A gush of fluid was then seen. The infants head then was delivered atraumatically through the incision. The placenta was then removed. The cord was then clamped and cut. Cord blood specimen gases were taken, which were normal. The uterus was then closed in a double layer of Biosyn suture. The right and left paracolic gutters were inspected, and no gross bleeding was identified. At this time, the peritoneum with the muscle was then approximated. The fascia was then closed. Skin sutures were applied after imbrication suture to approximate the underlying Scarpas fascia. The patient was sent to the recovery room in stable alert condition. MIGDALIA PUENTES M.D. JACQUES/[id number]
--- NOTE | 2017-04-14 15:33 | DS ---
DATE OF ADMISSION: 01/04/2017 DATE OF DISCHARGE: 01/08/2017 The patient was seen throughout her hospital course, noted to be doing well, no issues or concerns. The patient was subsequently discharged home to be followed up in the office. MIGDALIA MCHUGH M.D. JACQUES/[id number]
== END 2017-01-08 12:51 | disposition home or self-care (01) | DRG 540 ==
LOC: JDEL 12:35 → JLDR 14:18 → JICU 20:01 → J3W 01-05 19:52
PROVIDERS: ADMIT Obstetrics & Gynecology; ATTEND Obstetrics & Gynecology
PROC: 30233R1 Transfusion of Nonautologous Platelets into Peripheral Vein, Percutaneous Approach (ICD-10-PCS; 2017-01-04)
PROC: 10D00Z1 Extraction of Products of Conception, Low, Open Approach (ICD-10-PCS; principal; 2017-01-08)
DX: O14.13 Severe pre-eclampsia, third trimester (principal); Z3A.36 36 weeks gestation of pregnancy; O99.113 Other diseases of the blood and blood-forming organs and certain disorders involving the immune mechanism complicating pregnancy, third trimester; O99.013 Anemia complicating pregnancy, third trimester; O34.211 Maternal care for low transverse scar from previous cesarean delivery; D69.6 Thrombocytopenia, unspecified; O26.893 Other specified pregnancy related conditions, third trimester; E83.51 Hypocalcemia; R74.0 Nonspecific elevation of levels of transaminase and lactic acid dehydrogenase [LDH]; Z37.0 Single live birth
CPT/HCPCS: 36415; 36430; 36600; 76705-TC; 76801-TC; 80048; 80053; 81003; 81015; 82150; 82550; 82553; 82803; 82977; 83010; 83605; 83690; 83735; 84100; 84484; 84550; 85025; 85027; 85044; 85384; 85610; 85730; 86593; 86704; 86706; 86708; 86850; 86900; 86901; 87040; 87086; 87340; 88307-TC; 94010; P9034; P9038

== ENCOUNTER 2017-07-17 06:26 | Emergency (ER) | payer OTHER ==
[2017-07-17 06:37] VITALS: BMI 28.3
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
[2017-07-17] MEDS ORDERED: TETANUS AND DIPHTHERIA TOXOID 0.5 ML DISP.SYRIN IM ONE (07:39)
[2017-07-17 08:14] LABS: URINE APPEARANCE SLCLOUDY; URINE BILIRUBIN NEGATIVE (NEGATIVE); URINE BLOOD NEGATIVE (NEGATIVE); URINE COLOR LTYELLOW; URINE GLUCOSE (UA) NEGATIVE (NEGATIVE); URINE KETONE NEGATIVE (NEGATIVE); URINE LEUK ESTERASE NEGATIVE (NEGATIVE); URINE NITRITE NEGATIVE (NEGATIVE); URINE UROBILINOGEN NEGATIVE mg/dL (0.2-1.0)
[2017-07-17 08:15] LABS: BASOPHIL 0.5 % (0-2.0); EOSINOPHIL 0.1 % (0-4.5); MCH 30.8 pg (25.7-33.7); MCHC 33.3 g/dl (32.0-36.0); MEAN CELL VOLUME 92.3 fl (80-96); MEAN PLT VOLUME 8.2 fl (7.5-11.1); NEUTROPHILS 78.1 % (42.8-82.8); PLATELET COUNT 305 K/MM3 (134-434); URINE PROTEIN 1+ (NEGATIVE); WHITE BLOOD COUNT 16.2 K/mm3 (4.0-10.0)
[2017-07-17 08:18] LABS: URINE BACTERIA RARE /hpf (NONE SEEN); URINE MUCUS RARE; URINE WBC 4 /hpf (3-5)
[2017-07-17] MEDS ORDERED: ACETAMINOPHEN 325 MG TABLET (FP) PO ONE (08:20)
[2017-07-17] MEDS ORDERED: ACETAMINOPHEN 325 MG TABLET (FP) ONE (08:21)
[2017-07-17 08:27] LABS: ANION GAP 9 (8-16); BILIRUBIN,TOTAL 0.4 mg/dL (0.2-1.0); CALCIUM 8.9 mg/dL (8.5-10.1); CO2 23 mmol/L (21-32); CREATININE 0.7 mg/dL (0.55-1.02); GLUCOSE,RANDOM 90 mg/dL (74-106); SGOT/AST 18 U/L (15-37); SGPT/ALT 32 U/L (12-78); TOT PROT 7.7 g/dl (6.4-8.2); URINE MARIJUANA THC NEGATIVE ng/ml (CUTOFF=50)
[2017-07-17 08:29] LABS: ALK PHOS 68 U/L (45-117)
[2017-07-17 11:07] VITALS: BP 102/59; PULSE 100; TEMP 97.9
== END 2017-07-17 11:07 | disposition home or self-care (01) ==
LOC: JER 06:26
PROC: 3E0234Z Introduction of Serum, Toxoid and Vaccine into Muscle, Percutaneous Approach (ICD-10-PCS; principal; 2017-07-17)
DX: R51 Headache (principal); Y04.2XXA Assault by strike against or bumped into by another person, initial encounter; Y93.89 Activity, other specified; Y92.9 Unspecified place or not applicable; Y07.03 Male partner, perpetrator of maltreatment and neglect
CPT/HCPCS: 36415; 70450-TC; 72125-TC; 80053; 80307; 81003; 81015; 84703; 85025; 90471; 90715; 99285-25

== ENCOUNTER 2020-07-10 21:04 | Emergency (ER) | payer OTHER ==
--- NOTE | 2020-07-10 21:30 | PDOC ---
Rapid Medical Evaluation Chief Complaint: Pain Time Seen by Provider: 07/10/20 21:27 Medical Evaluation: Allergies Allergy/AdvReac Type Severity Reaction Status Date / Time No Known Allergies Allergy Verified 07/17/17 06:38 07/10/20 21:29 I have performed a brief in-person evaluation of this patient. The patient presents with a chief complaint of: b/l breast implant with complains of b/l breast pain. pt has been having pain intermittently for 3 years now. last U/S done 3 years ago Pertinent physical exam findings: afebrile I have ordered the following:deferred The patient will proceed to the ED for further evaluation. Discharge Disposition - Diagnosis Bilateral mastodynia - Discharge Dispostion Condition at time of disposition: Stable - Referrals - Patient Instructions - Post Discharge Activity
[2020-07-10 21:35] VITALS: BP 117/81; PULSE 79; TEMP 98.1; BMI 30.1
[2020-07-10] MEDS ORDERED: KETOROLAC TROMETHAMINE 30 MG/1 ML VIAL IM ONE (22:57)
--- NOTE | 2020-07-10 23:00 | PDOC ---
History of Present Illness - General Chief Complaint: Pain Stated Complaint: PAIN Time Seen by Provider: 07/10/20 21:27 History Source: Patient Exam Limitations: Language Barrier ([employer] tool planner services was used for this interaction) - History of Present Illness Initial Comments: 07/10/20 22:55 35-year-old female history of bilateral breast implants 5 years ago complaining of bilateral breast pain for the last 3 years. Patient reports that she was told that she has some outpouching of the implant to both breast from 2 mammograms that were done before. Patient reports that for the last 2 days the pain has been more increasing denies fever/chills, nausea, vomiting, breast redness, mass. Patient reports that the pain to bilateral breast radiates to bilateral axilla. Past History - Medical History Allergies/Adverse Reactions: Allergies Allergy/AdvReac Type Severity Reaction Status Date / Time No Known Allergies Allergy Verified 07/17/17 06:38 Home Medications: Ambulatory Orders NK [No Known Home Medication] 07/17/17 Asthma: No Cardiac Disorders: No Diabetes: No HTN: No Seizures: No Thyroid Disease: No - Reproductive History Is Patient Now?: No - Immunization History Immunization Up to Date: No - Psycho-Social/Smoking History Smoking History: Never smoked Have you smoked in the past 12 months: No - Substance Abuse Hx (Audit-C & DAST Scrn) How often the patient has a drink containing alcohol: Never Score: In Men: 4 or > Positive; In Women: 3 or > Positive: 0 Screen Result (Pos requires Nsg. Audit-10AR): Negative *Physical Exam - Vital Signs Last Vital Signs Temp Pulse Resp BP Pulse Ox 98.1 F 79 20 117/81 100 07/10/20 21:27 07/10/20 21:27 07/10/20 21:27 07/10/20 21:27 07/10/20 21:27 - Physical Exam General Appearance: Yes: Appropriately Dressed HEENT: positive: Other (palpated breast implants in both breast. no lymphadenopathy appreciated, no mass or erythema) Medical Decision Making - Medical Decision Making 07/11/20 05:52 A: breast pain without signs of infection P: pain control outpatient breast surgery / plastic surgery referral. Discharge - Discharge Information Problems reviewed: Yes Clinical Impression/Diagnosis: Bilateral mastodynia Condition: Stable Disposition: HOME - Follow up/Referral Referrals: Simon Grant MD [Staff Physician] - Call tomorrow Loco Grant [Staff Physician] - Call tomorrow Richard Hernandez MD [Staff Physician] - Call tomorrow Clifton Alexandra MD [Staff Physician] - Call tomorrow - Patient Discharge Instructions Patient Printed Discharge Instructions: Mastalgia Additional Instructions: Take ibuprofen every 6 hours as needed for pain. You may apply ice to the area It is important that you follow-up with the breast surgeon or a plastic surgeon for your ongoing breast implant pain. Return to the emergency room for any worsening symptoms - Post Discharge Activity
[2020-07-10] MEDS ORDERED: KETOROLAC TROMETHAMINE 30 MG/1 ML VIAL ONE (23:06)
== END 2020-07-10 23:12 | disposition home or self-care (01) ==
LOC: JER 21:04
PROC: 3E0233Z Introduction of Anti-inflammatory into Muscle, Percutaneous Approach (ICD-10-PCS; principal; 2020-07-10)
DX: N64.4 Mastodynia (principal)
CPT/HCPCS: 99284-25